=== PATIENT | female | born 2005 | race Caucasian/White ===

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

== ENCOUNTER → 2023-04-14 | Outpatient (REF) | payer BC, OTHER ==
[2023-04-14 15:34] LABS: GC DNA AMPLIFICATION NEGATIVE (NEGATIVE)
== END ==
LOC: M LAB REF 13:07
PROVIDERS: ATTEND Registered Nurse
DX: Z11.3 Encounter for screening for infections with a predominantly sexual mode of transmission (principal)

== ENCOUNTER → 2023-06-19 | Outpatient (CLI) | payer BC, OTHER ==
[2023-06-19 13:53] LABS: HEMATOCRIT 40.6 % (36.0-47.0); HEMOGLOBIN 13.9 g/dl (12.0-15.5); MEAN CORPUSCULAR HEMOGLOBIN 30.6 pg (27.0-33.0); MEAN CORPUSCULAR HGB CONC 34.2 g/dl (32.0-36.5); MEAN CORPUSCULAR VOLUME 89.4 fl (80.0-96.0); PLATELET COUNT, AUTOMATED 256 10^3/uL (150-450); RED BLOOD COUNT 4.54 10^6/uL (4.00-5.40)
[2023-06-19 14:46] LABS: HIV 1&2 SCREEN NEGATIVE (NEGATIVE)
[2023-06-19 14:53] LABS: HEPATITIS C VIRUS ABY INDEX 0.07 INDEX (<0.8)
[2023-06-19 15:58] LABS: GC DNA AMPLIFICATION NEGATIVE (NEGATIVE)
== END ==
LOC: M PLALAB 09:13
PROVIDERS: ATTEND Specialist
DX: Z34.02 Encounter for supervision of normal first pregnancy, second trimester (principal)

== ENCOUNTER → 2023-06-19 | Outpatient (CLI) | payer OTHER | LOC: M WHC 09:02 | PROVIDERS: ATTEND Specialist | DX: Z53.9 Procedure and treatment not carried out, unspecified reason (principal) ==

== ENCOUNTER → 2023-07-26 | Outpatient (CLI) | payer BC, OTHER | LOC: M WHC 09:52 | PROVIDERS: ATTEND Specialist | DX: Z34.02 Encounter for supervision of normal first pregnancy, second trimester (principal) ==

== ENCOUNTER → 2023-08-28 | Outpatient (CLI) | payer BC, OTHER | LOC: M WHC 07:29 | PROVIDERS: ATTEND Advanced Practice Midwife | DX: Z34.02 Encounter for supervision of normal first pregnancy, second trimester (principal) ==

== ENCOUNTER → 2023-09-14 | Outpatient (CLI) | payer BC, OTHER ==
[2023-09-14 14:12] LABS: HEMATOCRIT 38.5 % (36.0-47.0); HEMOGLOBIN 12.2 g/dl (12.0-15.5); MEAN CORPUSCULAR HEMOGLOBIN 29.3 pg (27.0-33.0); MEAN CORPUSCULAR HGB CONC 31.7 g/dl (32.0-36.5); MEAN CORPUSCULAR VOLUME 92.3 fl (80.0-96.0); PLATELET COUNT, AUTOMATED 266 10^3/uL (150-450); RED BLOOD COUNT 4.17 10^6/uL (4.00-5.40); WHITE BLOOD COUNT 9.1 10^3/uL (4.0-10.0)
== END ==
LOC: M PLALAB 07:54
PROVIDERS: ATTEND Advanced Practice Midwife
DX: Z34.02 Encounter for supervision of normal first pregnancy, second trimester (principal)

== ENCOUNTER → 2023-11-10 | Outpatient (REF) | payer OTHER | LOC: M PLALAB 10:57 | PROVIDERS: ATTEND Advanced Practice Midwife | DX: Z34.03 Encounter for supervision of normal first pregnancy, third trimester (principal) ==

== ENCOUNTER 2023-12-13 00:51 | Inpatient (IN) | payer BC, OTHER ==
[~2023-12-13] VITALS: Ht 157.5 cm; Wt 79.5 kg
[2023-12-13] VITALS (56 sets, daily range): BP systolic 108–157; BP diastolic 56–97; TEMP 98.1; O2SAT 96–99
[2023-12-13 01:55] LABS: HEMATOCRIT 35.3 % (36.0-47.0); HEMOGLOBIN 11.4 g/dl (12.0-15.5); MEAN CORPUSCULAR HEMOGLOBIN 27.1 pg (27.0-33.0); MEAN CORPUSCULAR HGB CONC 32.3 g/dl (32.0-36.5); MEAN CORPUSCULAR VOLUME 83.8 fl (80.0-96.0); PLATELET COUNT, AUTOMATED 194 10^3/uL (150-450); RED BLOOD COUNT 4.21 10^6/uL (4.00-5.40); WHITE BLOOD COUNT 15.7 10^3/uL (4.0-10.0)
[2023-12-13] MEDS ORDERED: PRENTAB9 PO (02:02)
[2023-12-13] MEDS ORDERED: AZO1CHW PO (02:02)
[2023-12-13] MEDS ORDERED: TRANEXAMIC ACID INJection 1,000 MG in NS 100 ML IV PRN (02:20)
[2023-12-13] MEDS ORDERED: OXYTOCIN DRIP 30 UNITS in IV 1 EA IV PRN (02:20)
[2023-12-13] MEDS ORDERED: METHYLERGONOVINE MALEATE 0.2MG/ML 1ML VIAL IM PRN (02:20)
[2023-12-13] MEDS ORDERED: LIDOCAINE 1% MDV 20ML VIAL INFIL PRN (02:20)
[2023-12-13] MEDS ORDERED: NALOXONE INJ 0.4MG/1ML VIAL IV PRN ×3 (02:25→16:40)
[2023-12-13] MEDS ORDERED: diphenhydrAMINE 50MG/ML VIAL IV PRN ×3 (02:25→16:40)
[2023-12-13] MEDS ORDERED: ePHEDrine SULFATE 25 MG/5 ML(5MG/ML) SYRINGE IVP PRN (02:25)
[2023-12-13] MEDS ORDERED: LR 500 ML IV PRN (02:25)
[2023-12-13] MEDS ORDERED: ONDANSETRON 4MG 2ML VIAL IV PRN ×2 (02:25→16:40)
[2023-12-13] MEDS ORDERED: EPIDURAL/PCA KEYS XX PRN (02:25)
[2023-12-13] MEDS: LR 1,000 ML IV ONE (02:49)
[2023-12-13] MEDS: LR 1,000 ML IV SCH (02:49)
[2023-12-13] MEDS: FENTANYL/ROPIVACAINE/NACL BAG 100 ML EPIDURAL SCH (03:04)
[2023-12-13] MEDS: OXYTOCIN DRIP 30 UNITS in IV 1 EA IV SCH ×2 (14:48→17:03)
[2023-12-13] MEDS ORDERED: LACTATED RINGER'S 1000 ML IV STA (15:34)
[2023-12-13] MEDS: AZITHROMYCIN INJ 500 MG, VIAL MATE ADAPTER 1 EACH in NS 250 ML IV ONE (15:44)
[2023-12-13] MEDS: BICITRA 30ML SOLN UDC PO ONE (15:44)
[2023-12-13] MEDS: ceFAZolin SOD 2 GM in IV 1 EA IV ONE (15:44)
[2023-12-13] MEDS ORDERED: MORPHINE PRES-FREE INJ 10 MG/10 ML VIAL As Ordered ONE (16:07)
[2023-12-13] MEDS ORDERED: OXYTOCIN 30UNITS IN 0.9% NaCl 500ML IV BAG As Ordered ONE (16:07)
[2023-12-13] MEDS ORDERED: ACETAMINOPHEN 1000MG 100ML IV BAG As Ordered ONE (16:07)
[2023-12-13] MEDS ORDERED: ONDANSETRON 4MG 2ML VIAL As Ordered ONE (16:16)
[2023-12-13] MEDS ORDERED: KETOROLAC 60MG 2ML VIAL As Ordered ONE (16:16)
[2023-12-13] MEDS ORDERED: LIDOCAINE 2% W/EPINEPHRINE 20ML VIAL **PRES FREE As Ordered ONE (16:26)
[2023-12-13] MEDS ORDERED: SLF 3 ML SYR IV SCH (16:40)
[2023-12-13] MEDS ORDERED: fentaNYL 100 MCG/2 ML INJECTION IV PRN (16:40)
[2023-12-13] MEDS ORDERED: PROMETHAZINE 25MG/ML 1ML VIAL IV PRN (16:40)
[2023-12-13] MEDS ORDERED: oxyCODONE 5MG TAB PO PRN (16:40)
[2023-12-13] MEDS ORDERED: METOCLOPRAMIDE INJ 10MG/2ML VIAL IV PRN (16:40)
[2023-12-13] MEDS ORDERED: LR 1,000 ML IV SCH (16:40)
[2023-12-13] MEDS ORDERED: NALBUPHINE HCL 1MG/0.1ML (100MG/10ML) MDV IV PRN (16:40)
[2023-12-13] MEDS ORDERED: **NOTE PATIENT COMMENT** MISC XX SCH (16:40)
[2023-12-13] MEDS ORDERED: DOCUSATE SODIUM 100MG CAPSULE PO PRN (16:50)
[2023-12-13] MEDS ORDERED: RHOGAM 300MCG (1500IU) INJ IM SCH (16:50)
[2023-12-13] MEDS ORDERED: PERCOCET 5MG/325MG TAB PO PRN (16:50)
[2023-12-13] MEDS ORDERED: SIMETHICONE 80MG CHEW TAB PO PRN (16:50)
[2023-12-13] MEDS ORDERED: MEPERIDINE 25 MG/ML 1ML VIAL As Ordered ONE (17:02)
[2023-12-13] MEDS: MEPERIDINE 25 MG/ML 1ML VIAL IV PRN (17:04)
[2023-12-13] MEDS: KETOROLAC 30 MG/ML 1ML VIAL IV SCH (23:15)
[2023-12-14] MEDS: ONDANSETRON 4MG 2ML VIAL IV PRN (00:04)
[2023-12-14] MEDS: LR 1,000 ML IV SCH (01:17)
[2023-12-14 02:00] VITALS: BP 119/75; O2SAT 100
[2023-12-14 05:56] VITALS: BP 101/56; O2SAT 100
[2023-12-14 07:29] LABS: HEMATOCRIT 28.6 % (36.0-47.0); MEAN CORPUSCULAR HEMOGLOBIN 27.7 pg (27.0-33.0); MEAN CORPUSCULAR HGB CONC 31.8 g/dl (32.0-36.5); MEAN CORPUSCULAR VOLUME 86.9 fl (80.0-96.0); PLATELET COUNT, AUTOMATED 158 10^3/uL (150-450); RED BLOOD COUNT 3.29 10^6/uL (4.00-5.40); WHITE BLOOD COUNT 19.9 10^3/uL (4.0-10.0)
[2023-12-14 07:31] LABS: HEMOGLOBIN 9.1 g/dl (12.0-15.5)
[2023-12-14] MEDS: PRENATAL VITAMINS CHEWABLE TABLET PO SCH (09:00)
[2023-12-14 09:58] VITALS: BP 122/63; O2SAT 96
[2023-12-14 14:00] VITALS: BP 123/67; O2SAT 99
[2023-12-14 17:40] VITALS: BP 126/67; O2SAT 98
[2023-12-14] MEDS: IBUPROFEN 800 MG TAB PO SCH (18:34)
[2023-12-14 22:00] VITALS: BP 122/58; O2SAT 97
[2023-12-14] MEDS: PERCOCET 5MG/325MG TAB PO PRN (23:37)
[2023-12-15 06:00] VITALS: BP 129/77; O2SAT 98
[2023-12-15] MEDS ORDERED: OXYC1TAB23 PO (06:53)
[2023-12-15] MEDS ORDERED: COLA100C5 PO (06:53)
[2023-12-15] MEDS ORDERED: IBUP80TA PO (06:53)
[2023-12-15] MEDS: MEASLES,MUMPS,RUBELLA VACCINE INJ (MMR-II) SC.IMMUN ONE (09:00)
[2023-12-15 10:00] VITALS: BP 134/65; O2SAT 98
== END 2023-12-15 14:30 | disposition home or self-care (01) | DRG 540 ==
LOC: M LDO 00:51 → M LDI 01:33 → M OBS 18:15
PROVIDERS: ADMIT Obstetrics & Gynecology; ATTEND Specialist
PROC: 10D00Z1 Extraction of Products of Conception, Low, Open Approach (ICD-10-PCS; principal; 2023-12-13 15:42)
DX: O48.0 Post-term pregnancy (principal); O64.0XX0 Obstructed labor due to incomplete rotation of fetal head, not applicable or unspecified; O76 Abnormality in fetal heart rate and rhythm complicating labor and delivery; Z3A.40 40 weeks gestation of pregnancy; Z37.0 Single live birth

== ENCOUNTER → 2024-04-16 | Outpatient (REF) | payer BC, OTHER ==
[~2024-04-16] MED LIST: AZO1CHW PO; COLA100C5 PO; IBUP80TA PO; OXYC1TAB23 PO; PRENTAB9 PO
[2024-04-16 19:59] LABS: GC DNA AMPLIFICATION NEGATIVE (NEGATIVE)
== END ==
LOC: M LAB REF 17:18
PROVIDERS: ATTEND Registered Nurse
DX: Z11.3 Encounter for screening for infections with a predominantly sexual mode of transmission (principal)